=== PATIENT | male | born 1935 | race Caucasian/White ===

== ENCOUNTER → 2016-09-21 | Outpatient (CLI) | payer MEDICARE ==
--- NOTE | 2016-09-21 09:56 | RAD ---
Indication swollen lump on the palm of the hand near the base of the third digit. An AP view of the right hand was obtained as well as oblique and lateral imaging targeted to the long finger. No acute bony finding is seen. There are degenerative changes predominantly centered on the DIP joints. IMPRESSION: Degenerative change. No acute bony finding seen
== END | disposition home or self-care (01) ==
LOC: DXRAD 09:26
PROVIDERS: ATTEND Orthopaedic Surgery
DX: M79.644 Pain in right finger(s) (principal); M79.89 Other specified soft tissue disorders
CPT/HCPCS: 73140